=== PATIENT | female | born 1965 | race Caucasian/White ===

== ENCOUNTER 2018-12-25 01:42 | Emergency (ER) | payer OTHER, SELFPAY ==
[2018-12-25 01:43] VITALS: BP 138/81; PULSE 93; RESP 16; TEMP 36.6; O2SAT 100; BMI 18.5
--- NOTE | 2018-12-25 02:52 | ED.DCSUM_ITS ---
History of Present Illness Chief Complaint: Vag Bleeding Narrative: Patient is a 52-year-old female who presents with weakness, nausea, leg pain. She has a history of anemia which had been attributed to blood loss anemia. She has a clinical trials assistant. He has previously been on iron orally and has previously had iron infusions. Although this was attributed to heavy periods she has never followed up with gynecology. She now reports heavy vaginal bleeding for 2 weeks with large clots. She was seen in an emergency department at another hospital 2 days ago and started on Methergine. She also had further outpatient tests the next day from her clinical trials assistant. She has not attempted to contact gynecology. Since starting the Methergine she complains of nausea and sharp leg pains. She also complains of ongoing weakness. Past Medical History - Allergies and Home Meds Allergies/Adverse Reactions: Allergies No Known Allergies Allergy (Verified 12/25/18 01:43) Primary Care Physician: Care Physician,No Primary [Primary Care Provider] - Past Medical History: - - Anemia Smoking Status: Never smoker Review of Systems All systems negative except as indicated General: Denies: Fever Cardiovascular: Denies: Chest pain Respiratory: Denies: Dyspnea Gastrointestinal: Reports: Nausea. Denies: Vomiting Genitourinary: Reports: - - Heavy vaginal bleeding Musculoskeletal: Reports: Myalgias Physical Exam Vital Signs/Narrative: Vital Signs Temp Pulse Resp BP Pulse Ox 12/25/18 01:43 97.8 F 93 16 138/81 H 100 Inital Vital Signs reviewed: Yes General: Well nourished Head: Normocephalic Eyes: EOMI ENT: Moist mucous membranes Neck: Supple Cardiovascular: Regular rate Respiratory: No distress Abdomen: Soft, Nontender, Nondistended Skin: Normal color Neurological: Alert Psychological: Normal affect Diagnostic/Tx/Re-eval Laboratory Results 12/25/18 12/25/18 12/25/18 01:45 01:45 01:45 WBC 5.3 RBC 2.87 L Hgb 7.8 L Hct 24.4 L MCV 85.0 MCH 27.2 MCHC 32.0 RDW Std Deviation 48.9 H RDW Coeff of Gavin 15.8 H Plt Count 199 MPV 11.5 Immature Gran % (Auto) 0.200 Neut % (Auto) 75.2 H Lymph % (Auto) 14.2 L [place] % (Auto) 8.9 Eos % (Auto) 1.1 Baso % (Auto) 0.4 Absolute Neuts (auto) 4.0 Absolute Lymphs (auto) 0.75 L Nucleated RBC % 0 Sodium 140 Potassium 3.7 Chloride 109 H Carbon Dioxide 27.0 Anion Gap 4 L BUN 12 Creatinine 0.62 Estim Creat Clear Calc 84.62 Est GFR (MDRD) Af Amer 129 Est GFR (MDRD) Non-Af 106 BUN/Creatinine Ratio 19.3 Glucose 111 H Calcium 8.2 L Serum , Qual NEGATIVE - Medical Decision Making Labs notable for hemoglobin of 7.8. Genitourinary examination on speculum exam shows only mild current bleeding no clots. Her vitals are normal. Her nausea and leg pain is likely related to the Methergine. I do not feel anything further needs urgently done tonight but she does need outpatient follow-up with gynecology. She was referred to gynecology. She understands to return for new or worsening symptoms and was discharged. ED Disposition - Plan for ED Patient: Disposition: Home or Assisted Living Diagnosis: Menorrhagia, Anemia Instructions: Dysfunctional Uterine Bleeding Referrals: Care Physician,No Primary [Primary Care Provider] - Francisco Choe [STAFF PHYSICIAN] -
[2018-12-25 03:00] LABS: Absolute Lymphocyte Count 0.75 X10^3/uL (0.83-4.51); Basophil# 0.02 X10^3/uL; Basophil% 0.4 % (0-1); Eosinophil# 0.06 X10^3/uL; Eosinophils% 1.1 % (0-5); Hematocrit 24.4 % (37-47); Hemoglobin 7.8 g/dL (12.0-15.0); Lymphocyte # 0.75 X10^3/ul (4.0); Lymphocyte % 14.2 % (19-41); Mean Corpuscular Hgb 27.2 pg (27.0-32.0); Mean Platelet Vol. 11.5 fl (6.2-12.0); Monocyte# 0.47 X10^3/uL; Monocyte% 8.9 % (0-10); NRBC Flagged by Analyzer 0 % (0-5); Neutrophil # 3.96 X10^3/uL (2.7-7.7); Neutrophil % 75.2 % (47-70); Platelet Count 199 K/mm3 (150-450); RBC Distribution Width CV 15.8 % (11.6-14.6); RBC Distribution Width SD 48.9 fl (35.1-43.9); Red Blood Count 2.87 M/mm3 (4.2-5.4); White Blood Count 5.3 K/mm3 (4.4-11.0)
[2018-12-25 03:06] LABS: Internal QC Validated? YES +Cl - CLEAR BKGD; Pregnancy, Serum, hCG Quali. NEGATIVE Negative
[2018-12-25 03:10] LABS: Anion Gap 4 (5-15); BUN 12 mg/dL (7-18); BUN/Creat Ratio 19.3 RATIO (10-20); Calcium,Total 8.2 mg/dL (8.5-10.1); Chloride 109 mmol/L (98-107); Creatinine, Serum 0.62 mg/dL (0.55-1.02); EST Glomerular Filtration Rate 106 mL/min (>60); Est Glom Filt Rate - Afr Amer 129 mL/min (>60); Estimated Creatinine Clearance 84.62 ml/min; Glucose 111 mg/dL (74-106); Potassium 3.7 mmol/L (3.5-5.1); Sodium Level 140 mmol/L (136-145)
[2018-12-25 03:42] VITALS: BP 108/70; PULSE 82; RESP 16; O2SAT 99
== END 2018-12-25 04:29 | disposition home or self-care (01) ==
PROVIDERS: Emergency Provider Emergency Medicine
DX: N92.0 Excessive and frequent menstruation with regular cycle (principal); D50.0 Iron deficiency anemia secondary to blood loss (chronic)
CPT/HCPCS: 80048; 84703; 85025; 99282; A4216